=== PATIENT | female | born 1970 | race African-American/Black ===

== ENCOUNTER 2017-02-05 10:54 | Emergency (ER) | payer SELFPAY ==
[~2017-02-05] VITALS: Ht 175.3 cm; Wt 88.6 kg
[2017-02-05] MEDS ORDERED: IBUPROFEN 800 MG TABLET PO ONE (11:45)
[2017-02-05 12:00] VITALS: BP 142/89
== END 2017-02-05 12:11 | disposition home or self-care (01) ==
LOC: EMS 10:55
DX: S00.83XA Contusion of other part of head, initial encounter (principal); I10 Essential (primary) hypertension; F17.210 Nicotine dependence, cigarettes, uncomplicated; Z88.6 Allergy status to analgesic agent; X58.XXXA Exposure to other specified factors, initial encounter; Y93.89 Activity, other specified; Y92.9 Unspecified place or not applicable; Y99.9 Unspecified external cause status
CPT/HCPCS: 99282